=== PATIENT | female | born 1985 | race Caucasian/White ===

== ENCOUNTER 2016-12-05 20:54 | Emergency (ER) | payer BC ==
--- NOTE | 2016-12-05 21:37 | ERNOTE ---
Medical Problem HPI - Narrative Date of Service: 12/05/16 - General Chief Complaint: General Assessment Time Seen by Provider: 12/05/16 21:27 Source: patient, RN notes reviewed Exam Limitations: no limitations - Immun/Allergies/Home Medications Immunizations: IMMUNIZATION HX Immunizations Up to Date Yes History of Influenza Vaccine Yes Allergies/Adverse Reactions: Allergies bee venom (honey bee) Allergy (Severe, Verified 12/05/16 21:01) Anaphylaxis Home Medications: HOME MEDICATIONS Ranitidine HCl [Zantac] 150 mg PO HS 04/02/15 [Last Taken 04/02/15 12:00] - History of Present History Narrative: 31 y/o female ambulatory to the ED for vaginal bleeding. She began spotting 2 days ago. She saw Dr. Bailey yesterday. Her ultrasound showed a demise. She was scheduled to have a D&C tomorrow morning. She began having heavy bleeding at about 1900. She reports passing numerous clots and what looked to be tissue while sitting on the toilet at home. She contacted OB on-call and was directed to come here for evaluation. Her cramping has subsided and she reports the bleeding has slowed. She is with LMP of 09/16/2016. She is O positive. Date (Duration): 12/05/16 Time (Timing): 19:00 Review of Systems - Review of Systems Constitutional: Absent: fever, chills EYE: Present: no symptoms reported ENT: Present: no symptoms reported Respiratory: Present: no symptoms reported Cardiology: Absent: chest pain, syncope Gastrointestinal/Abdominal: Absent: nausea, vomiting Genitourinary: Present: See HPI Musculoskeletal: Present: no symptoms reported Skin: Present: no symptoms reported Neurological: Absent: headache, dizziness/light-headedness Endocrine: Present: no symptoms reported Hematologic/Lymphatic: Absent: easy bruising, easy bleeding Psych: Present: no symptoms reported - Patient's Past Medical History Patient History - Medical: No pertinent hx Patient History - Cardiac/Respiratory: No pertinent hx Patient History - Cancer: No Hx of Cancer Patient History - Surgical Procedures: Orthopedic Patient History - Other: None LMP (Calendar): 09/16/16 - Family History Mother Family History - Medical: Anemia Family History - Cardiac/Respiratory: Hypertension - Social History Living Situations: home Abuse History: No History of abuse Psych History: No pertinent hx Smoking Status: Never smoker Alcohol Use: none Drug Use: none - Immunizations Immunizations Up to Date: Yes History of Influenza Vaccine: Yes Physical Exam - Physical Exam General Appearance: Present: wd/wn, alert, no apparent distress, anxious Respiratory: Present: no respiratory distress, normal breath sounds, no accessory muscle use, lungs clear Cardiovascular/Chest: Present: regular rate, rhythm, no murmur, normal peripheral pulses Gastrointestinal/Abdominal: Present: nondistended, soft, tenderness - mild, suprapubic Neurological Exam: Present: alert, oriented, normal mood/affect, no motor/ sensory deficits Skin Exam: Present: warm/dry, pallor Pelvic Exam: Present: active bleeding, other - cervix dilated with tissue protruding ED Progress - Vital Signs Patient's Vital Signs:: I have reviewed the patient's vital signs. Vital Signs: Vital Signs 12/05/16 20:58 Temperature 37.1 C Pulse Rate 67 Respiratory 16 Rate Blood Pressure 143/71 O2 Sat by Pulse 100 Oximetry - Progress/Reassessment Chief Complaint: General Assessment Plan - Plan Plan: Dr. Mendes contacted regarding patient. She is having moderate bleeding. Clots and tissue removed during exam, sent for pathology. Patient denies any pain currently. Recommended giving [employer] - patient declines this option. CBC is stable. Patient to return if bleeding is persistently heavy during the night, or if she has worsening pain - otherwise is to have D&C tomorrow as planned. Departure - Departure Clinical Impression: Spontaneous Disposition: Home Follow Up Needed Condition: Stable Instructions: Miscarriage, [id number] Additional Instructions: Return tonight for worsening bleeding or pain, otherwise return as planned for surgery tomorrow Referrals: Heidy Bailey DO [Primary Care Provider] -
--- OUTSIDE RECORDS SUMMARY | 2016-12-05 22:09 | XMS REPORT | Continuity of Care Document ---
:1985 Author Organization [facility] ([facility]) [place] [address] Phone [phone] Care Team Providers Name Role Phone Provider, No-Primary Care Primary Care Provider Unavailable Source Comments This disclosure is being made pursuant to the Care Everywhere program, applicable federal and state laws, and may not contain all informaitonavailable regarding this patient.[facility] ([facility]) Active Allergies and Adverse Reactions Allergen Noted Date Severity Reactions Comments Docusate Sodium 01/04/2015 Rash Current Medications Prescription Sig. Disp. Refills Start Date End Date Status multivitamin Take by mouth. Active with minerals PO diphenhydrAMINE 25 mg Take 25 mg by mouth Active capsule at bedtime as needed. Indications: ALLERGIC RHINITIS ranitidine 150 mg tablet Take 150 mg by Active mouth 2 times daily. Indications: HEARTBURN Active Problems Not on file Social History Tobacco Use Types Packs/Day Years Used Date Never Smoker Smokeless Tobacco: Never Used Alcohol Use Drinks/Week oz/Week Comments No Last Filed Vital Signs Vital Sign Reading Time Taken Blood Pressure 137/76 01/04/2015 1:45 PM CDT Pulse - - Temperature 36.6 C (97.9 F) 01/04/2015 1:45 PM CDT Respiratory Rate - - Height 1.727 m (5' 8") 01/04/2015 1:45 PM CDT Weight 83.9 kg (184 lb 15.5 oz) 01/04/2015 1:45 PM CDT Body Mass Index 28.13 01/04/2015 1:45 PM CDT Oxygen Saturation - - Plan of Care Health Maintenance Due Date Last Done Comments Hepatitis B Vaccine (1 of 3 - Primary Series) 1985 Tdap Vaccine 1997 Cervical Cancer Screening 2004 Lipid Disorder Screening 2004 MMR Vaccine 2004 Td Vaccine 2004 Varicella Vaccine (1 of 2 - Adult - No Evidence of 2004 Immunity) Influenza Vaccine: Seasonal (#1) 04/16/2016 Results from Last 3 Months Not on file
[2016-12-05 22:32] LABS: Hematocrit 35.4 % (37.0-47.0); Hemoglobin 11.8 gm/dL (12.5-16.0); Mean Cell Volume 90.5 fl (78-100); Mean Corpuscular Hemoglobin 30.2 pg (27-31); Mean Corpuscular Hgb Conc 33.3 g/dl (32-36); Mean Platelet Volume 9.8 fl (6.0-9.5); Neutrophil # 9.6 K/mm3 (1.3-6.0); Neutrophil % 76.3 % (42-75.0); Platelet Count 245 K/mm3 (150-450); Red Blood Count 3.91 M/mm3 (4.2-5.4); Red Cell Distribution Width 12.3 % (11.5-14.0); White Blood Count 12.6 K/mm3 (4.0-10.5)
[2016-12-05 22:55] VITALS: BP 106/69
== END 2016-12-05 22:46 | disposition home or self-care (01) ==
LOC: ER 20:54
DX: O03.9 Complete or unspecified spontaneous abortion without complication (principal)

== ENCOUNTER 2016-12-06 07:46 | Day surgery (SDC) | payer BC ==
[~2016-12-06 07:46] MED LIST: DOXYCYCLINE HYCLATE 100 MG TABLET PO PRN; RINGERS SOLUTION,LACTATED 1,000 ML IV PRN
--- OUTSIDE RECORDS SUMMARY | 2016-12-06 07:50 | XMS REPORT | Continuity of Care Document ---
:1985 Author Organization [facility] ([facility]) [place] [address] Phone [phone] Care Team Providers Name Role Phone Provider, No-Primary Care Primary Care Provider Unavailable Source Comments This disclosure is being made pursuant to the Care Everywhere program, applicable federal and state laws, and may not contain all informaitonavailable regarding this patient.[facility] ([facility]) Active Allergies and Adverse Reactions Allergen Noted [...]
[2016-12-06 08:03] VITALS: BP 106/68
--- NOTE | 2016-12-06 10:05 | PN ---
Progess Note - Interim Narrative: 12/06/16 09:59 The patient and her presented today for scheduled suction D&C. She had presented last night to the emergency department after passing blood clots and tissue around 8 PM last night. After passing the tissue the patient felt relief and pain and bleeding subsided. She has used 1 pad this morning and has minimal cramping. An ultrasound was performed this morning to look for any retained products of conception and findings were consistent with a completed AB. These findings were discussed with the patient and her and at this time she no longer needs the suction D&C. Procedure was canceled. Patient was counseled on expectations status post SAB as far as bleeding, cramping, and recovery and when to call the office. Signs and symptoms of symptomatic anemia were reviewed with the patient. Expected bleeding profile was reviewed. Will keep follow-up appointment as scheduled on December 18 for repeat beta hCG levels. I encouraged the patient to continue taking her vitamins and to wait until her beta hCG levels are negative and at least one cycle prior to attempting another . All questions and concerns were addressed to the patient and her . They were relieved to not have to undergo surgery today.
== END 2016-12-06 07:47 | disposition home or self-care (01) ==
LOC: AMB 07:46
PROVIDERS: ATTEND Obstetrics & Gynecology Gynecologic Oncology
DX: Z53.8 Procedure and treatment not carried out for other reasons (principal)

== ENCOUNTER 2018-05-14 09:51 | Inpatient (IN) ==
[2018-05-14] MEDS ORDERED: PENICILLIN G POTASSIUM 5 MILLIONUNT in DEXTROSE 5 % IN WATER 100 ML IV ONE ×2 (10:15)
[2018-05-14] MEDS ORDERED: RINGER'S SOLUTION,LACTATED 1,000 ML IV ONE (10:15)
[2018-05-14] MEDS ORDERED: ONDANSETRON HCL/PF 2 MG/ML VIAL IV PRN ×2 (10:15→22:09)
[2018-05-14] MEDS ORDERED: OXYTOCIN/DEXTROSE 5%-WATER 30 UNITS/500 ML BAG IV ONE (10:15)
--- NOTE | 2018-05-14 14:16 | HP ---
Chief Complaint - Chief Complaint Date of Service: 05/14/18 Time of Service: 14:00 Chief Complaint: elevated blood pressures History of Present Illness: 32 yo at 38 5/7 wks presents to L&D for induction of labor due to gestational hypertension. This complicated by gestational hypertension. Rh positive Rubella immune GBS positive Medical History (Last Reviewed 05/14/18 @ 14:06 by Kurt Macias DO) Ovarian cyst Onset Date: ~10/18/17 Abnormal Pap smear of cervix Onset Date: ~11/2010 Abnormal uterine bleeding Onset Date: ~04/20/14 Bacterial vaginosis Onset Date: ~08/07/16 Knee pain Onset Date: ~2015 Missed Onset Date: ~12/04/16 Tear meniscus knee Onset Date: ~2002 Vulvovaginal candidiasis Onset Date: ~08/07/16 Infertility associated with anovulation Onset Date: ~2013 Surgical History: Surgical History (Last Reviewed 05/14/18 @ 14:06 by Kurt Macias DO) History of breast augmentation Onset Date: ~05/2012 History of colposcopy Onset Date: ~02/2012 History of wisdom tooth extraction Onset Date: ~2005 S/P ACL repair Onset Date: ~2002 S/P foot surgery, left Onset Date: ~01/2012 Family History: Family History (Last Reviewed 05/14/18 @ 14:06 by Kurt Macias DO) Father Hyperlipemia Diabetes Mother Hypertension Grandfather Myocardial infarction Grandfather CVA (cerebral vascular accident) Myocardial infarction Grandmother Cancer Grandmother Cancer Social History: Preferred Language Albanian Abuse History No History of abuse Psych History No pertinent hx Review Of Systems (GEN) - Review of Systems Generalized/Overall Review: Present: No Symptoms Reported EENTM: Present: No Symptoms Reported Respiratory: Present: No Symptoms Reported Cardiac: Present: No Symptoms Reported Abdominal: Present: No Symptoms Reported Genitourinary: Present: No Symptoms Reported Musculoskeletal: Present: No Symptoms Reported Neurological: Present: No Symptoms Reported Skin: Present: No Symptoms Reported Endocrine: Present: No Symptoms Reported Immunizations: IMMUNIZATION HX Immunizations Up to Date Yes History of Influenza Vaccine Yes Allergies/Adverse Reactions: Allergies Allergy/AdvReac Type Severity Reaction Status Date / Time venom-honey bee Allergy Severe Anaphylaxis Verified 05/13/18 13:59 [bee venom (honey bee)] No Known Drug Allergies Allergy Verified 05/13/18 13:59 venom-wasp AdvReac Hives Verified 05/13/18 13:59 Home Medications: HOME MEDICATIONS doxylamine succinate 25 mg tablet 25 mg PO HS PRN 03/17/18 [Last Taken 05/13/18] ranitidine 150 mg tablet 150 mg PO BID tab 03/20/18 [Last Taken 05/14/18] omega 9-jig-ivp-fish oil 1,000 mg (120 mg-180 mg) capsule 120 cap PO ONCE [Last Taken 05/13/18] breast pump See Dose Instructions .ROUTE .MEDSUPPLY #1 ea 05/01/18 [Last Taken Unknown] Acetaminophen [Tylenol] 650 mg PO BID 05/13/18 [Last Taken 05/13/18] Vits96/Iron Fum/Folic [ S] 1 tab PO DAILY 05/14/18 [Last Taken 05/13/18] Exam - Exam Vital Signs: Vital Signs - Last Taken Temp 36.4 C 05/14/18 10:30 Pulse 98 05/14/18 10:30 Resp 18 05/14/18 10:30 BP 141/87 H 05/14/18 10:30 Pulse Ox 98 05/14/18 10:30 Constitutional: Present: Alert, Oriented x3, Cooperative ENT Exam: Present: hearing grossly normal Neck: Present: non-tender. Absent: thyromegaly Breasts: Present: Exam deferred Respiratory: Present: lungs clear, no respiratory distress Cardiovascular/Chest: Present: normal peripheral pulses, regular rate, rhythm, no edema Abdomen: Present: soft, nontender, no rebound tenderness, other - gravid, FHT 150 bpm, moderate variability, good accelerations/no decelerations /Rectal: Present: Exam deferred Extremity: Present: non-tender, no pedal edema, no calf tenderness Skin Exam: Present: normal color, warm/dry, no cyanosis Lymphatic: Present: no adenopathy Neurologic: Present: normal mood/affect, oriented x 3 Appearance: Present: appropriate appearance, appropriate insight Eye contact: Present: cooperative, good eye contact, normal speech Thoughts: Present: normal thought pattern Assessment/Plan - Assessment/Plan (1) Gestational hypertension Assessment: Admit for pitocin induction of labor. Preeclampsia precautions. Epidural PRN. IV PCN for GBS prophylaxis. Problem: Acute Qualifiers: Trimester: third trimester Qualified Code(s): O13.3 - Gestational [ -induced] hypertension without significant proteinuria, third trimester (2) Group B streptococcal carriage complicating Problem: Acute
[2018-05-14] MEDS: PENICILLIN G POTASSIUM 2.5 MILLIONUNT in DEXTROSE 5 % IN WATER 100 ML IV SCH ×6 (14:22→22:24)
--- NOTE | 2018-05-14 17:16 | PN ---
Progess Note - Interim Date: 05/14/18 Time: 17:14 Narrative: 05/14/18 17:14 Patient rating her contractions for about a 10 Vital signs stable, blood pressures in mild range. Pitocin at 9 mu/min. FHT: 140 baseline, reassuring Contractions q 2-3 min Cervix: 2/80/-2 Impression: Intrauterine at 38 5/7 weeks induction of labor for gestational hypertension. GBS carrier-status post 2 doses of penicillin Plan: Continue present plan
[2018-05-14] MEDS ORDERED: CALCIUM CARBONATE 500 MG TAB.CHEW PO PRN (20:01)
--- NOTE | 2018-05-14 20:21 | PN ---
Progess Note - Interim Date: 05/14/18 Time: 20:18 Narrative: 05/14/18 20:19 Patient rating contractions as moderate Vital signs stable. Pitocin at 9 mu/min. FHT:150 baseline, reassuring Contractions q 1-3 min Cervix: 3/70/-3 Impression: Intrauterine at 38-5/7 weeks induction of labor for gestational hypertension. GBS carrier-status post IV penicillin 3 doses Plan: Continue present plan 05/14/18 20:21
[2018-05-14] MEDS ORDERED: BUPIVACAINE HCL/0.9 % NACL/PF 250 ML EP PRN (22:09)
[2018-05-14] MEDS ORDERED: NALOXONE HCL 1 MG/1 ML SYRG IV PRN (22:09)
--- NOTE | 2018-05-14 22:11 | PN ---
Progess Note - Interim Date: 05/14/18 Time: 22:06 Narrative: 05/14/18 22:06 Patient becoming more uncomfortable with contractions and desires an epidural Vital signs stable. Pitocin at 3 mu/min. FHT:150 baseline, reassuring Contractions q 2-3 min, were 1-2 when Pitocin was at 6 mU/m Cervix: 4/80/-2, AROM-clear Impression: Intrauterine at 38-5/7 weeks in labor. GBS positive- status post 3 doses of IV penicillin Plan: Continue present plan
[2018-05-14] MEDS ORDERED: fentaNYL CITRATE/PF 50 MCG/ML AMPUL IT SCH (22:15)
--- NOTE | 2018-05-14 22:19 | ANES ---
Anesthesia Pre Procedure Eval Vitals/Labs: Last Vital Signs Temp 36.4 C 05/14/18 10:30 Pulse 98 05/14/18 10:30 Resp 18 05/14/18 10:30 BP 141/87 H 05/14/18 10:30 Pulse Ox 98 05/14/18 10:30 HOME MEDICATIONS doxylamine succinate 25 mg tablet 25 mg PO HS PRN 03/17/18 [Last Taken 05/13/18] ranitidine 150 mg tablet 150 mg PO BID tab 03/20/18 [Last Taken 05/14/18] omega 7-kvl-qcl-fish oil 1,000 mg (120 mg-180 mg) capsule 120 cap PO ONCE [Last Taken 05/13/18] breast pump See Dose Instructions .ROUTE .MEDSUPPLY #1 ea 05/01/18 [Last Taken Unknown] Acetaminophen [Tylenol] 650 mg PO BID 05/13/18 [Last Taken 05/13/18] Vits96/Iron Fum/Folic [ S] 1 tab PO DAILY 05/14/18 [Last Taken 05/13/18] Allergies/Adverse Reactions: Allergies Allergy/AdvReac Type Severity Reaction Status Date / Time venom-honey bee Allergy Severe Anaphylaxis Verified 05/13/18 13:59 [bee venom (honey bee)] No Known Drug Allergies Allergy Verified 05/13/18 13:59 venom-wasp AdvReac Hives Verified 05/13/18 13:59 - Planned Procedure Planned Procedure: INDUCTION OF LABOR Medication List Reviewed:: Yes Allergies Verified: Yes Medical History (Last Reviewed 05/14/18 @ 22:18 by Delfino Hairston CRNA) Ovarian cyst Onset Date: ~10/18/17 Abnormal Pap smear of cervix Onset Date: ~11/2010 Abnormal uterine bleeding Onset Date: ~04/20/14 Bacterial vaginosis Onset Date: ~08/07/16 Knee pain Onset Date: ~2015 Missed Onset Date: ~12/04/16 Tear meniscus knee Onset Date: ~2002 Vulvovaginal candidiasis Onset Date: ~08/07/16 Infertility associated with anovulation Onset Date: ~2013 Surgical History (Last Reviewed 05/14/18 @ 22:18 by Delfino Hairston CRNA) History of breast augmentation Onset Date: ~05/2012 History of colposcopy Onset Date: ~02/2012 History of wisdom tooth extraction Onset Date: ~2005 S/P ACL repair Onset Date: ~2002 S/P foot surgery, left Onset Date: ~01/2012 Family History (Last Reviewed 05/14/18 @ 22:18 by Delfino Hairston CRNA) Father Hyperlipemia Diabetes Mother Hypertension Grandfather Myocardial infarction Grandfather CVA (cerebral vascular accident) Myocardial infarction Grandmother Cancer Grandmother Cancer - Family Anesthesia History Family History:: no untoward family reactions to anesthesia - Airway/Neck/Teeth Within Normal Limits:: Yes - Respiratory Respiratory: lungs clear Discussed smoking cessation including day of surgery: No Sleep Apnea currently treated: No Sleep Apnea by current assessment: No Discussed Risks/Treatment of MARIBETH: No - Cardiovascular Patient History - Cardiac/Respiratory: No pertinent hx Tolerates Activity: Good Heart Sounds: S1 & S2, Regular - Anesthesia Assessment and Plan ASA Class: PS, II, E Anesthesia Type Plan: Epidural Planned difficult intubation/equipment available: No
--- NOTE | 2018-05-15 00:31 | ANES ---
Anesthesia Procedure Note Procedure Note: ANESTHESIA PROCEDURE NOTE Date of Procedure: 05/14/2018 Time of procedure:[]. 2235 Performed by: Marco A Hairston CRNA Career Advisor: None. Preprocedure diagnosis: Active labor. Post procedure diagnosis: Same. Procedure: Insertion of labor epidural. Indications: The patient is a [32] -year-old [multigravida] female in active labor requesting labor epidural for pain management. Findings: See below. Details of the procedure: The patient was placed in a sitting position. Back was prepped with DuraPrep. Patient was then draped in a sterile fashion. Lidocaine 1% was infiltrated to the skin and subcutaneous tissues at the level of the L3 4 interspace. The epidural space was identified using a 18-gauge Tuohy needle with [id number] technique. 20 mcg fentanyl was given intrathecally using a 27 ga. spinal needle. Epidural catheter was inserted without difficulty. Negative test dose was elicited using 5 mL of 1.5% preservative-free lidocaine plus epinephrine 1 200,000. The epidural catheter was then taped and secured in place. EBL: Minimal. Fluids: N/A. Specimen: N/A. Post procedure condition: The patient tolerated the procedure well. No complications were noted. Thank you for this consultation. Henderson CRNA
[2018-05-15] MEDS: PENICILLIN G POTASSIUM 2.5 MILLIONUNT in DEXTROSE 5 % IN WATER 100 ML IV SCH ×2 (02:26)
[2018-05-15] MEDS ORDERED: HYDROCORTISONE 30 APPL TUBE TP PRN (03:17)
[2018-05-15] MEDS ORDERED: SENNOSIDES 8.6 MG TABLET PO PRN (03:17)
[2018-05-15] MEDS ORDERED: OXYTOCIN/DEXTROSE 5%-WATER 30 UNITS/500 ML BAG IV ONE (03:17)
[2018-05-15] MEDS ORDERED: BENZOCAINE/MENTHOL 81 SPRAY CAN TP PRN (03:17)
[2018-05-15] MEDS ORDERED: oxyCODONE HCL/ACETAMINOPHEN 1 TAB TABLET PO PRN ×2 (03:17)
[2018-05-15] MEDS ORDERED: BISACODYL 10 MG SUPP.RECT RC PRN (03:17)
[2018-05-15] MEDS ORDERED: GLYCERIN/WITCH HAZEL LEAF 40 APPL BOX TP PRN (03:17)
--- NOTE | 2018-05-15 03:26 | OR ---
Operative Report - Dictated Report Narrative: Spontaneous vaginal delivery of viable male at 0250 on 05/15/2018 with Apgars 8 and 9, weighing 3350 g in JOSE MARIA position. Cord clamping delayed approximately 1 minute Placenta delivered complete, intact, with three vessel cord Estimated blood loss: less than 50 ml Anesthesia: epidural Lacerations: 2 cm second degree vaginal laceration repaired with 3-0 Vicryl repeat
[2018-05-15] MEDS ORDERED: DOCUSATE SODIUM 100 MG CAPSULE ONE (07:44)
[2018-05-15] MEDS: DOCUSATE SODIUM 100 MG CAPSULE PO SCH ×2 (08:17→20:27)
--- NOTE | 2018-05-15 10:25 | PN ---
Progess Note - Interim Date: 05/15/18 Time: 10:25 History for MU Definition: * The number of deliveries resulting in a live the patient experienced prior to current hospitalization * The previous delivery of live twins or any live multiple gestation is considered one live event. *If primagravida or nulliparous is documented select zero for the number of previous live births. Live Events: 1
[2018-05-15] MEDS: IBUPROFEN 800 MG TABLET PO PRN ×2 (12:18→19:37)
[2018-05-15] MEDS: ACETAMINOPHEN 500 MG TABLET PO PRN ×2 (14:52→22:14)
[2018-05-16] MEDS: IBUPROFEN 800 MG TABLET PO PRN ×3 (03:53→20:12)
[2018-05-16] MEDS: ACETAMINOPHEN 500 MG TABLET PO PRN ×2 (07:33→15:17)
[2018-05-16] MEDS: DOCUSATE SODIUM 100 MG CAPSULE PO SCH ×2 (10:39→20:12)
--- NOTE | 2018-05-16 14:09 | PN ---
Subjective - Date and Time Seen Date: 05/16/18 Time: 14:08 Objective - Vitals Vitals: Last Vital Signs Temp 36.4 C 05/16/18 07:54 Pulse 75 05/16/18 07:54 Resp 16 05/16/18 07:54 BP 113/72 05/16/18 07:54 Pulse Ox 96 05/16/18 07:54 Patient denies complaints. Lochia wnl Abdomen - soft, nontender Uterus - firm, at umbilicus - 1 No calf tenderness Impression: day #1 - s/p spontaneous vaginal delivery. Plan: Continue routine care Assessment/Plan - Problems/Diagnosis (1) Gestational hypertension Problem: Acute Qualifiers: Trimester: third trimester Qualified Code(s): O13.3 - Gestational [ -induced] hypertension without significant proteinuria, third trimester (2) Group B streptococcal carriage complicating Problem: Acute
[2018-05-17] MEDS: ACETAMINOPHEN 500 MG TABLET PO PRN ×2 (00:35→06:44)
[2018-05-17 07:10] VITALS: BP 118/81
--- NOTE | 2018-05-17 09:31 | PN ---
Subjective - Date and Time Seen Date: 05/17/18 Time: 09:30 Objective - Vitals Vitals: Last Vital Signs Temp 36.8 C 05/17/18 06:59 Pulse 77 05/17/18 06:59 Resp 20 05/17/18 06:59 BP 118/81 05/17/18 06:59 Pulse Ox 97 05/17/18 06:59 Patient denies complaints. Breast-feeding well Lochia wnl Abdomen - soft, nontender Uterus - firm, at umbilicus - 2 No calf tenderness Impression: day #2 - s/p spontaneous vaginal delivery. Plan: Routine discharge instructions Assessment/Plan - Problems/Diagnosis (1) Gestational hypertension Problem: Acute Qualifiers: Trimester: third trimester Qualified Code(s): O13.3 - Gestational [ -induced] hypertension without significant proteinuria, third trimester (2) Group B streptococcal carriage complicating Problem: Acute
== END 2018-05-17 11:00 | disposition home or self-care (01) | DRG 774 ==
LOC: OB 09:51
PROVIDERS: ADMIT Obstetrics & Gynecology; ATTEND Obstetrics & Gynecology
CPT/HCPCS: 59025